=== PATIENT | female | born 1935 | race African-American/Black ===

== ENCOUNTER 2016-06-21 10:07 | Emergency (ER) | payer MEDICARE, OTHER ==
[~2016-06-21] VITALS: Ht 160 cm; Wt 63.0 kg
[2016-06-21 10:11] VITALS: BP 191/83; PULSE 93; RESP 17; TEMP 98.1; O2SAT 96
[2016-06-21] MEDS ORDERED: AMLO10TA2 PO (10:22)
[2016-06-21 10:24] VITALS: BP 182/84; PULSE 90; RESP 16; O2SAT 98
--- NOTE | 2016-06-21 10:44 | PD ---
HPI Chief Complaint: Medical Clearance Time Seen by Provider: 10:17 Travel History International Travel<30 days: No Contact w/Intl Traveler<30days: No Traveled to known affect area: No History of Present Illness HPI 80-year-old female was brought in by EMS for evaluation for high blood pressure. Patient has history of hypertension and has been taking blood pressure medication at home. Patient's unable to tell me the name the medication. EMS reported they found a bottle of amlodipine home. Patient resides at local assisted-living. EMS was called this morning after patient found patient's unresponsive on the floor. Patient was checked at the scene by EMS personnel and her blood pressure was found to be elevated. Patient was advised to go to ED for evaluation. Patient denies any headache. Patient denied any chest pain or shortness of breath. Patient denies abdominal pain. Patient denies any focal weakness or numbness of extremity. PFSH Past Medical History Medical History: Unable to Obtain Cardiovascular Problems: Yes (HTN) Past Surgical History Surgical History: Unable to Obtain Social History Alcohol Use: No Tobacco Use: No Substance Use: No Allergies-Medications (Allergen,Severity, Reaction): Coded Allergies: UNOBTAINABLE (Unverified , 06/21/16) Reported Meds & Prescriptions Reported Meds & Active Scripts Active Reported Amlodipine (Amlodipine Besylate) 10 Mg Tab 10 Mg PO BID Review of Systems General / Constitutional: No: Fever Eyes: No: Visual changes HENT: No: Headaches Cardiovascular: No: Chest Pain or Discomfort Respiratory: No: Shortness of Breath Gastrointestinal: No: Abdominal Pain Genitourinary: No: Dysuria Musculoskeletal: No: Pain Skin: No Rash Neurologic: No: Weakness Psychiatric: No: Depression Endocrine: No: Polydipsia Hematologic/Lymphatic: No: Easy Bruising Physical Exam Narrative GENERAL: Well-nourished, well-developed patient. SKIN: Focused skin assessment warm/dry. HEAD: Normocephalic. EYES: No scleral icterus. No injection or drainage. NECK: Supple, trachea midline. No JVD or lymphadenopathy. CARDIOVASCULAR: Regular rate and rhythm without murmurs, gallops, or rubs. RESPIRATORY: Breath sounds equal bilaterally. No accessory muscle use. GASTROINTESTINAL: Abdomen soft, non-tender, nondistended. MUSCULOSKELETAL: No cyanosis, or edema. BACK: Nontender without obvious deformity. No CVA tenderness. Neurologic exam normal. Data Data Last Documented VS Vital Signs Date Time Temp Pulse Resp B/P Pulse Ox O2 Delivery O2 Flow Rate FiO2 06/21/16 10:24 90 16 182/84 98 Room Air 06/21/16 10:11 98.1 [facility] Medical Decision Making Medical Screen Exam Complete: Yes Emergency Medical Condition: Yes Differential Diagnosis Differential diagnosis including uncontrolled hypertension, hypertensive emergency, hypertensive crisis. Narrative Course 80-year-old female with elevated blood pressure. History of hypertension and on medication. Blood pressure in the ED now is 182/84. I would advised patient to follow-up with local physician. No treatment necessary at this point. Diagnosis Primary Impression: Elevated blood pressure reading Patient Instructions: General Instructions Additional Instructions: Advised patient to continue with blood pressure medications. Follow-up with personal physician for blood pressure check. Return if persistent elevated blood pressure. Med/Other Pt SpecificInfo: No Change to Meds Disposition: 01 DISCHARGE HOME Condition: Stable Jamie House MD June 21, 2016 10:44
== END 2016-06-21 11:10 | disposition home or self-care (01) ==
LOC: NEPE 10:07
DX: I10 Essential (primary) hypertension (principal)
CPT/HCPCS: 99283